=== PATIENT | male | born 1995 | race Hispanic/Latino ===

== ENCOUNTER 2016-05-17 08:33 | Emergency (ER) | payer OTHER ==
[~2016-05-17] VITALS: Ht 170.2 cm; Wt 65.3 kg
[2016-05-17 08:37] VITALS: BP 136/89
[2016-05-17] MEDS ORDERED: FIORICET 50-301 EACH PO (08:53)
[2016-05-17] MEDS ORDERED: IBUPROFEN800 M1 PO (08:53)
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
== END 2016-05-17 08:57 ==
LOC: ERH 08:33
DX: S06.0X0A Concussion without loss of consciousness, initial encounter (principal); W51.XXXA Accidental striking against or bumped into by another person, initial encounter; Y93.64 Activity, baseball

== ENCOUNTER 2016-10-17 14:26 | Emergency (ER) | payer OTHER ==
[~2016-10-17] VITALS: Ht 170.2 cm; Wt 64.4 kg
[~2016-10-17 14:26] MED LIST: FIORICET 50-301 EACH PO; IBUPROFEN800 M1 PO; ZOFRAN ODT4 M1 SL
== END 2016-10-17 15:22 | disposition admitted as inpatient to this hospital (09) ==
LOC: ERH 14:26
DX: R51 Headache (principal)

== ENCOUNTER 2017-04-04 17:55 | Emergency (ER) | payer OTHER ==
[~2017-04-04 17:55] MED LIST changes: +COLACE100 M1 PO; +FISH OIL 1,0001 EAC2 PO; +PERCOCET 5-3251 EACH PO; +VITAMIN D1000 UNIT PO
[2017-04-04 18:11] VITALS: BP 143/86
--- NOTE | 2017-04-04 20:22 | ED CARDIAC/CP/PALPITATIONS ---
History of Present Illness General Chief Complaint: General Adult Stated Complaint: CHEST THROBING X2 DAYS, L ARM TINGLING, FATIGUE Source: patient, old records Exam Limitations: no limitations Vital Signs & Intake/Output Vital Signs & Intake/Output Vital Signs Date Time Temp Pulse Resp B/P B/P Pulse O2 O2 Flow FiO2 Mean Ox Delivery Rate 04/04 1811 74 20 143/86 98 Allergies Coded Allergies: No Known Allergies (02/19/17) Reconcile Medications Cholecalciferol (Vitamin D3) (Vitamin D) 1,000 UNIT TABLET 1 TAB PO DAILY vitamin d def (Reported) Ibuprofen 800 MG TABLET 1 TAB PO TID PRN PAIN [place]-3/Dha/Epa/Fish Oil (Fish Oil 1,000 MG Softgel) 300 MG-1,000 MG CAPSULE 1 CAP PO DAILY SUPPLEMENT (Reported) Triage Note: PER PT SEEN MANY TIMES FOR THIS YOU GUYS ALWAYS SAY THERE IS NOTHING WRONG, CO THROBBING TO CHEST AND FATIGUE Triage Nurses Notes Reviewed? yes Onset: Abrupt Duration: day(s): (2), changing over time, continues in ED Timing: single episode today Quality/Severity: moderate, throbbing Location: left chest Radiation: no radiation Activities at Onset: none Prior Chest Pain/Card Workup: multiple chets pain work ups Modifying Factors: Worsens With: palpation. Nitro Today/Relief: no nitro taken today Aspirin Today: no aspirin today HPI: 41-year-old male with a past medical history of anxiety presents for evaluation of chest throbbing. Patient states that he first noticed this about 2 days ago and has been intermittent. He feels a throbbing sensation of the left side of his chest. Patient states that he has had this multiple times in the past year but it is never been this frequent. He has been seen in the emergency department here on several occasions for chest pain workups that has been benign. He was seen here a few weeks ago and had a normal EKG negative d-dimer and negative troponins. He did have an appendectomy done 2 months ago. He denies any shortness of breath. Nothing seems to make the pain better or worse. He's been going to the gym with this pain. He denies palpitations, shortness of breath, hemoptysis, lower extremity edema, drug alcohol or caffeine use, nausea, vomiting, sweats, chills or any other associated symptoms. He denies any family history of heart disease or sudden . Past History Travel History Traveled to [place] past 21 day No Medical History Any Pertinent Medical History? 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 No Review of Systems Review of Systems Constitutional: Reports: no symptoms. EENTM: Reports: no symptoms. Respiratory: Reports: no symptoms. Cardiovascular: Reports: see HPI, chest pain. GI: Reports: no symptoms. Genitourinary: Reports: no symptoms. Musculoskeletal: Reports: no symptoms. Skin: Reports: no symptoms. Neurological/Psychological: Reports: no symptoms. Hematologic/Endocrine: Reports: no symptoms. Immunologic/Allergic: Reports: no symptoms. All Other Systems: Reviewed and Negative Physical Exam Physical Exam General Appearance: well developed/nourished, no apparent distress, alert, awake , anxious Head: atraumatic, normal appearance Eyes: Bilateral: normal appearance, PERRL, EOMI. Ears, Nose, Throat: normal pharynx, normal ENT inspection, hearing grossly normal Neck: normal inspection, supple, full range of motion, no jvd Respiratory: normal breath sounds, no respiratory distress, lungs clear, chest wall is tender to palpation over the left chest Cardiovascular: regular rate/rhythm, normal peripheral pulses Peripheral Pulses: 2+ radial (R), 2+ radial (L) Gastrointestinal: normal bowel sounds, soft, non-tender, no organomegaly Back: normal inspection, normal range of motion Extremities: normal inspection, normal range of motion, no edema Neurologic/Psych: no motor/sensory deficits, awake, alert, oriented x 3, normal gait Skin: intact, normal color, warm/dry Core Measures ACS in differential dx? No CVA/TIA Diagnosis No Sepsis Present: No Sepsis Focused Exam Completed? No Progress Differential Diagnosis: AMI, atrial fibrillation, hyperkalemia, musculoskeletal pain, pericarditis, pneumonia, PVCs/PACs, V-fib/V-Tach Plan of Care: Orders Procedure Date/time Status EKG 04/04 1757 Active Patient seen and evaluated. He's been seen here recently for chest pain workups that have been benign. He has also follow-up with his primary care doctor and is currently seeing a counselor for anxiety. He has no symptoms began medical history denies any drug use. His EKG is currently normal sinus rhythm he is currently perc negative. Discussed with patient about options for today's workup. Advised that we could get blood work and a chest x-ray however he just had this about one week ago. His chest wall is tender to palpation. He declines any medication for anxiety or pain. He currently does not want to do blood work or chest x-ray today. He'll be referred to a hearing screen coordinator and his primary care doctor for further evaluation. Patient appears clinically wellhis chest pain is reproducible he just had a workup done a few weeks ago that was negative. He has perc negative. Advised him to rest and plenty of fluids and avoid excessive physical activity and follow-up with his primary care doctor. Tylenol appropriately for pain. Monitor symptoms return at anytime with any concerns Initial ED EKG: normal sinus rhythm, non-specific ivcd Departure Departure Disposition: HOME OR SELF CARE Condition: Stable Clinical Impression Primary Impression: Chest wall pain Referrals: Kristyn ANGUIANO,Pablo Ceja MD,Saman Vega (PCP/Family) Cachorro ANGUIANO,Sridhar Durant MD,Reddy Magallon Additional Instructions: Follow-up with provided primary care doctor and her general surgeon as soon as possible. Tylenol ibuProfen for pain. Monitor symptoms return with any concerns. Departure Forms: Customer Survey General Discharge Information Critical Care Note Critical Care Note Critical Care Time: non-applicable
== END 2017-04-04 20:32 ==
LOC: ERH 17:55
DX: R07.89 Other chest pain (principal)
CPT/HCPCS: 93005; 93010

== ENCOUNTER 2017-11-01 01:52 | Emergency (ER) | payer OTHER ==
[~2017-11-01] VITALS: Ht 172.7 cm; Wt 63.5 kg
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
[2017-11-01 02:28] VITALS: BP 121/76
== END 2017-11-01 03:51 ==
LOC: ERH 01:52
DX: S60.212A Contusion of left wrist, initial encounter (principal); S30.22XA Contusion of scrotum and testes, initial encounter; Y04.0XXA Assault by unarmed brawl or fight, initial encounter; Y92.238 Other place in hospital as the place of occurrence of the external cause; Y93.89 Activity, other specified